=== PATIENT | female | born 1980 | race Two or more races ===

== ENCOUNTER 2022-02-03 09:27 | Inpatient (IN) | payer SELFPAY ==
[~2022-02-03] VITALS: Ht 160 cm; Wt 70.6 kg
[2022-02-03] VITALS (10 sets, daily range): BP systolic 116–168; BP diastolic 60–91
--- NOTE | 2022-02-03 09:50 | PHYS DOC ---
Adult General Chief Complaint Chief Complaint: HYPERTENSION HPI HPI Patient is a 42 year old female who presents with chest pain. Patient is a Faroese-speaking 42-year-old female who moved to the [facility] from [place] 3 years ago. She comes to the ER today with a 1.5-day history of chest pain and chest heaviness. She reports the pain to be sternal in nature. Pain is sometimes worse with exertion but does occur while she is at rest. No shortness of breath. No fever, cough, chills. She does have prior history of similar symptoms but has not had chest pain during the 3 years time that she has been in [facility]. On arrival to ER, is noted to have severely elevated blood pressure with systolic readings over 220. She reports she has never been diagnosed with high blood pressure in the past and does not take any medications for this diagnosis. Also takes no medications daily for other reasons. She does complain of headache and occipital area as well. Complains of some pain in the left arm but no complaints of weakness. Review of Systems Review of Systems Constitutional: Denies fever or chills Eyes: Denies change in visual acuity HENT: Denies nasal congestion Respiratory: Denies cough or shortness of breath Cardiovascular: As documented in HPI GI: Denies abdominal pain, nausea : Denies dysuria or hematuria Musculoskeletal: Denies back pain Integument: Denies rash or skin lesions Neurologic: Occipital headache Endocrine: Denies polyuria or polydipsia All other systems were reviewed and found to be within normal limits, except as documented in this note. Current Medications Current Medications Current Medications Medications (Trade) Dose Ordered Sig/Mathew Start Time Stop Time Status Last Admin Dose Admin Acetaminophen (Tylenol) 650 mg PRN Q4HRS PRN 02/03/22 15:15 Aspirin (Aspirin Chewable) 324 mg 1X ONCE 02/03/22 13:30 02/03/22 13:31 DC 02/03/22 13:37 324 MG Clonidine HCl (Catapres) 0.1 mg 1X ONCE 02/03/22 13:15 02/03/22 13:20 DC Dextrose (Dextrose 50%-Water Syringe) 12.5 gm PRN Q15MIN PRN 02/03/22 15:15 Diphenhydramine HCl (Benadryl) 25 mg PRN QHS PRN 02/03/22 15:15 Docusate Sodium (Colace) 100 mg PRN DAILY PRN 02/03/22 15:15 Labetalol HCl (Normodyne Iv Push) 10 mg 1X ONCE 02/03/22 11:30 02/03/22 11:31 DC 02/03/22 11:40 10 MG Lorazepam (Ativan Inj) 0.25 mg PRN Q4HRS PRN 02/03/22 15:15 Lorazepam (Ativan) 0.5 mg PRN Q6HRS PRN 02/03/22 15:15 Nicardipine HCl 50 mg/Sodium Chloride 250 ml @ 25 mls/hr CONT PRN 02/03/22 14:00 02/03/22 14:11 25 MLS/HR Nitroglycerin (Nitrostat) 0.4 mg PRN Q5MIN PRN 02/03/22 13:30 02/03/22 13:43 0.4 MG Ondansetron HCl (Zofran) 4 mg PRN Q8HRS PRN 02/03/22 15:30 02/04/22 15:29 Potassium Chloride (Klor-Con) 40 meq 1X ONCE 02/03/22 15:15 02/03/22 15:26 DC Prochlorperazine Edisylate (Compazine) 10 mg PRN Q6HRS PRN 02/03/22 15:15 Sennosides (Senna) 17.2 mg PRN BID PRN 02/03/22 15:15 Zolpidem Tartrate (Ambien) 2.5 mg PRN QHS PRN 02/03/22 15:15 Allergies Allergies Allergies Coded Allergies Type Severity Reaction Last Updated Verified No Known Drug Allergies 02/03/22 No Physical Exam Physical Exam Constitutional: Well developed, well nourished, no acute distress, non-toxic appearance. HENT: Normocephalic, atraumatic, bilateral external ears normal, oropharynx moist, no oral exudates, nose normal Eyes: PERRLA, EOMI, conjunctiva normal, no discharge Neck: Normal range of motion Cardiovascular:Heart rate regular rhythm, no murmur Lungs & Thorax: Bilateral breath sounds clear to auscultation Abdomen: Bowel sounds normal, soft, no tenderness Skin: Warm, dry, no erythema Back: No tenderness Extremities: No tenderness, no edema Neurologic: Alert and oriented X 3, normal motor function Psychologic: Affect normal Current Patient Data Vital Signs Vital Signs Date Time Temp Pulse Resp B/P (MAP) Pulse Ox O2 Delivery O2 Flow Rate FiO2 02/03/22 14:35 89 14 173/96 (121) 98 02/03/22 09:38 98.2 Room Air 98.2 Lab Values Laboratory Tests Test 02/03/22 10:11 02/03/22 10:20 02/03/22 10:31 Urine Collection Type Unknown Urine Color (Auto) Colorless Urine Turbidity Clear Urine pH (Auto) 6.5 (<5.0-8.0) Urine Specific [place] 1.006 (1.000-1.030) Urine Protein (Auto) Negative mg/dL (Negative) Urine Glucose (Auto)(UA) Negative mg/dL (Negative) Urine Ketones (Auto) Negative mg/dL (Negative) Urine Blood (Auto) Negative (Negative) Urine Nitrite (Auto) Negative (Negative) Urine Bilirubin (Auto) Negative (Negative) Urine Urobilinogen (Auto) Normal mg/dL (Normal) Urine Leukocyte Esterase (Auto) Negative (Negative) Urine RBC 0 /HPF (0-2) Urine WBC 1-4 /HPF (0-4) Urine Squamous Epithelial Cells Mod /LPF Urine Bacteria Few /HPF (0-FEW) POC Urine HCG, Qualitative Hcg negative (Negative) White Blood Count 7.0 x10^3/uL (4.0-11.0) Red Blood Count 5.06 x10^6/uL (3.50-5.40) Hemoglobin 13.3 g/dL (12.0-15.5) Hematocrit 39.3 % (36.0-47.0) Mean Corpuscular Volume 78 fL (79-100) L Mean Corpuscular Hemoglobin 26 pg (25-35) Mean Corpuscular Hemoglobin Concent 34 g/dL (31-37) Red Cell Distribution Width 15.2 % (11.5-14.5) H Platelet Count 241 x10^3/uL (140-400) Neutrophils (%) (Auto) 61 % (31-73) Lymphocytes (%) (Auto) 31 % (24-48) Monocytes (%) (Auto) 7 % (0-9) Eosinophils (%) (Auto) 1 % (0-3) Basophils (%) (Auto) 1 % (0-3) Neutrophils # (Auto) 4.2 x10^3/uL (1.8-7.7) Lymphocytes # (Auto) 2.1 x10^3/uL (1.0-4.8) Monocytes # (Auto) 0.5 x10^3/uL (0.0-1.1) Eosinophils # (Auto) 0.1 x10^3/uL (0.0-0.7) Basophils # (Auto) 0.0 x10^3/uL (0.0-0.2) Sodium Level 138 mmol/L (136-145) Potassium Level 3.3 mmol/L (3.5-5.1) L Chloride Level 103 mmol/L (98-107) Carbon Dioxide Level 27 mmol/L (21-32) Anion Gap 8 (6-14) Blood Urea Nitrogen 7 mg/dL (7-20) Creatinine 0.7 mg/dL (0.6-1.0) Estimated GFR (Cockcroft-Gault) 92.7 Glucose Level 92 mg/dL (70-99) Calcium Level 8.8 mg/dL (8.5-10.1) Troponin I High Sensitivity 6 ng/L (4-50) Laboratory Tests 02/03/22 10:31 Laboratory Tests 02/03/22 10:31 EKG EKG 11:00; EKG is normal sinus rhythm. Possibly LVH. No STEMI. Radiology/Procedures Radiology/Procedures [] Course & Med Decision Making Course & Med Decision Making Pertinent Labs and Imaging studies reviewed. (See chart for details) Patient is evaluated on arrival to her room. She is complaining of some chest heaviness and discomfort. Blood pressure is noted to be elevated and she does not have a history of this. Standard work-up is ordered. 14:00: Patient is reevaluated. Continues to have some chest heaviness. She has received 2 doses of labetalol. She continues to have blood pressure of 225 systolic. Aspirin was ordered and nitroglycerin and will reevaluate blood pressure but patient will require admission for accelerated hypertension. Her labs are reviewed. Her EKG is nonacute and her troponin is not elevated. CT scan was completed given her complaint of headache and no acute findings. 15:00: All results are reviewed and discussed with the patient. No elevation of troponin. EKG nonacute. During the ER course, she was given labetalol which w as not effective. She was placed on nicardipine drip which she responded to very quickly. Blood pressure came down to 170 and the drip was placed on lowest setting at that point. I did discuss this patient with Dr. Cook who will primarily admit for control blood pressure and hypertensive urgency. Patient is agreeable to the plan of care. During the ER course, Faroese interpretive services were used to answer all of her questions. Dragon Disclaimer Dragon Disclaimer This electronic medical record was generated, in whole or in part, using a voice recognition dictation system. Departure Departure Impression: Primary Impression: Hypertensive urgency Disposition: ADMITTED INPATIENT Condition: IMPROVED RAFAEL MITCHELL DO Feb 03, 2022 09:50
[2022-02-03] MEDS ORDERED: LABETALOL 20 MG/4 ML DISP.SYRIN. IVP ONE ×2 (10:00→11:30)
[2022-02-03 10:45] LABS: BASO % 1 % (0-3); EOS # 0.1 x10^3/uL (0.0-0.7); EOS % 1 % (0-3); HEMATOCRIT 39.3 % (36.0-47.0); HEMOGLOBIN 13.3 g/dL (12.0-15.5); LYMPH # 2.1 x10^3/uL (1.0-4.8); LYMPH % 31 % (24-48); MEAN CORPUSCULAR HEMOGLOBIN 26 pg (25-35); MEAN CORPUSCULAR HGB CONC 34 g/dL (31-37); MEAN CORPUSCULAR VOLUME 78 fL (79-100); MONO # 0.5 x10^3/uL (0.0-1.1); MONO % 7 % (0-9); NEUT # 4.2 x10^3/uL (1.8-7.7); NEUT % 61 % (31-73); PLATELET COUNT 241 x10^3/uL (140-400); RED BLOOD COUNT 5.06 x10^6/uL (3.50-5.40); RED CELL DISTRIBUTION WIDTH 15.2 % (11.5-14.5)
[2022-02-03 10:47] LABS: BACTERIA,URINE FEW /HPF (0-FEW)
[2022-02-03 10:48] LABS: RBC,URINE 0 /HPF (0-2)
[2022-02-03 10:52] LABS: CALCIUM 8.8 mg/dL (8.5-10.1); CREATININE 0.7 mg/dL (0.6-1.0); GFR 92.7; POTASSIUM 3.3 mmol/L (3.5-5.1)
--- NOTE | 2022-02-03 11:36 | RAD ---
CT HEAD/BRAIN WO Date: 02/03/2022 11:18 AM Clinical Indication: severe headache, severe hypertension / Spl. Instructions: / History: Comparison: None. Technique: 5 mm axial tomographic images were obtained of the head without contrast. These were view ed on brain and bone windows. One or more of the following dose reduction techniques were utilized: A utomated exposure control (AEC), Adjustment of mA and/or kV according to patient size, Use of iterati ve reconstruction technique such as ASiR, CT scan done according to ALARA and image gently/image burdick ly Findings: The brain parenchyma is normal in attenuation. No intra- or extra-axial mass or fluid collection. No acute hemorrhage. The ventricles are normal in size, shape, and morphology. The martinez-white matter meghan ction is normal. The subarachnoid cisterns are patent. The visualized paranasal sinuses are normal. The visualized portions of the orbits and globes are no rmal. The mastoid air cells are clear. The metal trim erector topogram shows no lytic lesion or fracture. Impression: No acute intracranial process. Electronically signed by: Den Renteria MD (02/03/2022 11:33 AM) [id number]
--- NOTE | 2022-02-03 11:58 | EKG ---
[facility] [address] [place] [address] Test Date: 2022-02-03 Test Time: 10:06:11 Pat Name: TOIM MEEKS Department: Room: Gender: F Emergency Medical Dispatcher: : 1980 Requested By: RAFAEL MITCHELL Order Number: [id number] Reading MD: Yash Smith Measurements Intervals [place] Rate: 71 P: 34 FL: 162 QRS: -32 QRSD: 96 T: 61 QT: 406 QTc: 446 Interpretive Statements SINUS RHYTHM ABNORMAL LEFT AXIS DEVIATION LEFT ANTERIOR FASCICULAR BLOCK NON SPECIFIC ST-T WAVE CHANGES Electronically Signed On 02-03-2022 16:15:05 CDT by Yash Smith
[2022-02-03] MEDS ORDERED: cloNIDine HCL 0.1 MG TABLET PO ONE (13:15)
[2022-02-03] MEDS ORDERED: ASPIRIN CHEWABLE 81 MG TABLET. PO ONE (13:30)
[2022-02-03] MEDS: NITROGLYCERIN SUBLINGUAL 0.4 MG BOTTLE OF 25. SL PRN ×2 (13:38→13:43)
--- NOTE | 2022-02-03 14:33 | RAD ---
Single view of the chest. 02/03/2022 2:21 PM Indication: Chest pain Findings: There is no focal consolidation. There is no pleural effusion or pneumothorax. The cardiome diastinal silhouette and pulmonary vasculature are within normal limits. No acute osseous abnormaliti es are seen. Impression: No evidence of acute cardiopulmonary process. Electronically signed by: Jose Cummins MD (02/03/2022 2:30 PM) [id number]
[2022-02-03] MEDS ORDERED: diphenhydrAMINE 50 MG/ML VIAL IVP PRN (15:15)
[2022-02-03] MEDS ORDERED: POTASSIUM CHLORIDE 20 MEQ TABLET.ER. PO ONE (15:15)
[2022-02-03] MEDS ORDERED: LORazepam 0.5 MG TABLET PO PRN (15:15)
[2022-02-03] MEDS ORDERED: ZOLPIDEM 5 MG TABLET. PO PRN (15:15)
[2022-02-03] MEDS ORDERED: diphenhydrAMINE HCL 25 MG CAPSULE PO PRN ×2 (15:15)
[2022-02-03] MEDS ORDERED: DOCUSATE SODIUM 100 MG CAPSULE. PO PRN (15:15)
[2022-02-03] MEDS ORDERED: SENNOSIDES 8.6 MG TABLET PO PRN (15:15)
[2022-02-03] MEDS ORDERED: PROCHLORPERAZINE 10 MG/2 ML VIAL. IV PRN (15:15)
[2022-02-03] MEDS ORDERED: DEXTROSE 50% 25 GM / 50ML DISP.SYRIN. IV PRN (15:15)
[2022-02-03] MEDS ORDERED: ONDANSETRON PF 4 MG/2 ML VIAL. IVP PRN ×2 (15:15→15:30)
[2022-02-03] MEDS: ACETAMINOPHEN 325 MG TABLET. PO PRN (18:18)
--- NOTE | 2022-02-03 18:39 | PDOC1 ---
History and Physical Date of Service: DOS: DATE: 02/03/22 TIME: 18:27 Chief Complaint: Chief Complain: High blood pressure History of Present Illness: HPI: 42 yo F with no significant PMHx who comes in with chest discomfort and high BP. She moved from [place] 3 years ago and has not seen a doctor for 3 years. She does not take any medications. She started having chest heaviness about 2 days ago in the sternal region that occurs with exertion and also at rest. Denies SOB, fevers, N/V, ABD pain, diarrhea or dysuria. No family hx of AR or DM, but there is HTN in the family. In the ED, patient had labetalol x 2 and clonidine for BP systolics > 220, but pressures still elevated. She was started on a cardene drip and here pressures improved to 170/99. Denies any drug abuse or hx of high BP in the past. Past Medical/Surgical History: PMH/PSH: No PMHX of SurgHx Allergies: Allergies: Coded Allergies: No Known Drug Allergies (Unverified , 02/03/22) Family History: Family History: HTN Social History: Social History: Denies EtOH, drug or tobacco abuse. Current Medications: Current Medications Current Medications Labetalol HCl (Normodyne Iv Push) 10 mg 1X ONCE IVP Last administered on 02/03/22at 10:39; Start 02/03/22 at 10:00; Stop 02/03/22 at 10:01; Status DC Labetalol HCl (Normodyne Iv Push) 10 mg 1X ONCE IVP Last administered on at 11:40; Start 02/03/22 at 11:30; Stop 02/03/22 at 11:31; Status DC Clonidine HCl (Catapres) 0.1 mg 1X ONCE PO ; Start 02/03/22 at 13:15; Stop 02/03/22 at 13:20; Status DC Nitroglycerin (Nitrostat) 0.4 mg PRN Q5MIN PRN SL CHEST PAIN Last administered on 02/03/22at 13:43; Start 02/03/22 at 13:30 Aspirin (Aspirin Chewable) 324 mg 1X ONCE PO Last administered on 02/03/22at 1 3:37; Start 02/03/22 at 13:30; Stop 02/03/22 at 13:31; Status DC Nicardipine HCl 50 mg/Sodium Chloride 250 ml @ 25 mls/hr CONT PRN IV PER PROTOCOL Last administered on 02/03/22at 14:11; Start 02/03/22 at 14:00 Potassium Chloride (Klor-Con) 40 meq 1X ONCE PO Last administered on 02/03/22at 16:26; Start 02/03/22 at 15:15; Stop 02/03/22 at 15:26; Status DC Sennosides (Senna) 17.2 mg PRN BID PRN PO CONSTIPATION; Start 02/03/22 at 15:15 Docusate Sodium (Colace) 100 mg PRN DAILY PRN PO HARD STOOLS; Start 02/03/22 at 15:15 Ondansetron HCl (Zofran) 4 mg PRN Q6HRS PRN IVP NAUSEA/VOMITING, 1st CHOICE Last administered on 02/03/22at 18:25; Start 02/03/22 at 15:15 Dextrose (Dextrose 50%-Water Syringe) 12.5 gm PRN Q15MIN PRN IV SEE COMMENTS; Start 02/03/22 at 15:15 Acetaminophen (Tylenol) 650 mg PRN Q4HRS PRN PO TEMP OVER 100.4F OR MILD PAIN Last administered on 02/03/22at 18:18; Start 02/03/22 at 15:15 Lorazepam (Ativan) 0.5 mg PRN Q6HRS PRN PO ANXIETY / AGITATION; Start 02/03/22 at 15:15 Lorazepam (Ativan Inj) 0.25 mg PRN Q4HRS PRN IV ANXIETY / AGITATION; Start 02/03/22 at 15:15 Prochlorperazine Edisylate (Compazine) 10 mg PRN Q6HRS PRN IV NAUSEA/VOMITING, 2nd CHOICE; Start 02/03/22 at 15:15 Diphenhydramine HCl (Benadryl) 25 mg PRN Q6HRS PRN IVP ITCHING; Start 02/03/22 at 15:15 Diphenhydramine HCl (Benadryl) 25 mg PRN Q6HRS PRN PO ITCHING; Start 02/03/22 at 15:15 Diphenhydramine HCl (Benadryl) 25 mg PRN QHS PRN PO INSOMNIA, 1st CHOICE; Start 02/03/22 at 15:15 Zolpidem Tartrate (Ambien) 2.5 mg PRN QHS PRN PO INSOMNIA, 2nd CHOICE; Start 02/03/22 at 15:15 Ondansetron HCl (Zofran) 4 mg PRN Q8HRS PRN IVP NAUSEA/VOMITING; Start 02/03/22 at 15:30; Stop 02/04/22 at 15:29 ROS: Review of Systems Review of System REVIEW OF SYSTEMS: GENERAL: Denies weakness SKIN: No bruising, hair changes or rashes. EYES: No blurred, double or loss of vision. NOSE AND THROAT: No history of nosebleeds, hoarseness or sore throat. HEART: No history of palpitations, chest pain or shortness of breath on exertion. LUNGS: Denies cough, hemoptysis, wheezing or shortness of breath. GASTROINTESTINAL: Denies changes in appetite, nausea, vomiting, diarrhea or constipation. GENITOURINARY: No history of frequency, urgency, hesitancy or nocturia. NEUROLOGIC: Denies history of numbness, tingling, or tremor. PSYCHIATRIC: No history of panic, anxiety or depression. ENDOCRINE: No history of heat or cold intolerance, polyuria or polydipsia. EXTREMITIES: Denies joint pain, pain on walking or stiffness. Physical Exam: Vital Signs: Vital Signs Date Time Temp Pulse Resp B/P (MAP) Pulse Ox O2 Delivery O2 Flow Rate FiO2 02/03/22 17:40 83 16 157/90 (112) 100 02/03/22 09:38 98.2 Room Air 98.2 Physcial Exam: GEN: No apparent distress. Alert and oriented HEENT: Normal cephalic, atraumatic, external auditory canals are patent EYES: Extraocular muscles are intact, pupil are equally round and reactive to light and accommodation MUSCULOSKELETAL: Well developed , well nourished, good range of motion ENDOCRINE: No thyromegaly was palpated LYMPHATICS: No cervical chain or axillary nodes were noted HEMATOPOIETIC: No bruising NECK: Supple, no JVD, no thyromegaly was noted LUNGS: Clear to auscultation in all lung bynum without rhonchi or wheezing HEART: RRR, S!, S2 present. Peripheral pulses intact, no obvious murmurs noted ABDOMEN: Soft, nontender. Positive bowel sounds, no organomegaly, normal bowel sounds EXTREMITIES: Without clubbing, cyanosis, or edema. Pedal pulses intact. Negative Homans sign NEUROLOGIC: Normal speech and tone. A&O x 3, moves all extremities, no obvious focal deficits PSYCHIATRIC: Normal affect, normal mood. Stable SKIN: No ulcerations or rashes, good skin turgor, no jaundice VASCULAR: Good capillary refill, neurovascular bundle appears to be intact Labs: Labs: Laboratory Tests Test 02/03/22 10:11 02/03/22 10:20 02/03/22 10:31 Urine Collection Type Unknown Urine Color (Auto) Colorless Urine Turbidity Clear Urine pH (Auto) 6.5 (<5.0-8.0) Urine Specific [place] 1.006 (1.000-1.030) Urine Protein (Auto) Negative mg/dL (Negative) Urine Glucose (Auto)(UA) Negative mg/dL (Negative) Urine Ketones (Auto) Negative mg/dL (Negative) Urine Blood (Auto) Negative (Negative) Urine Nitrite (Auto) Negative (Negative) Urine Bilirubin (Auto) Negative (Negative) Urine Urobilinogen (Auto) Normal mg/dL (Normal) Urine Leukocyte Esterase (Auto) Negative (Negative) Urine RBC 0 /HPF (0-2) Urine WBC 1-4 /HPF (0-4) Urine Squamous Epithelial Cells Mod /LPF Urine Bacteria Few /HPF (0-FEW) Bedside Urine HCG, Qualitative Hcg negative (Negative) White Blood Count 7.0 x10^3/uL (4.0-11.0) Red Blood Count 5.06 x10^6/uL (3.50-5.40) Hemoglobin 13.3 g/dL (12.0-15.5) Hematocrit 39.3 % (36.0-47.0) Mean Corpuscular Volume 78 fL (79-100) Mean Corpuscular Hemoglobin 26 pg (25-35) Mean Corpuscular Hemoglobin Concent 34 g/dL (31-37) Red Cell Distribution Width 15.2 % (11.5-14.5) Platelet Count 241 x10^3/uL (140-400) Neutrophils (%) (Auto) 61 % (31-73) Lymphocytes (%) (Auto) 31 % (24-48) Monocytes (%) (Auto) 7 % (0-9) Eosinophils (%) (Auto) 1 % (0-3) Basophils (%) (Auto) 1 % (0-3) Neutrophils # (Auto) 4.2 x10^3/uL (1.8-7.7) Lymphocytes # (Auto) 2.1 x10^3/uL (1.0-4.8) Monocytes # (Auto) 0.5 x10^3/uL (0.0-1.1) Eosinophils # (Auto) 0.1 x10^3/uL (0.0-0.7) Basophils # (Auto) 0.0 x10^3/uL (0.0-0.2) Sodium Level 138 mmol/L (136-145) Potassium Level 3.3 mmol/L (3.5-5.1) Chloride Level 103 mmol/L (98-107) Carbon Dioxide Level 27 mmol/L (21-32) Anion Gap 8 (6-14) Blood Urea Nitrogen 7 mg/dL (7-20) Creatinine 0.7 mg/dL (0.6-1.0) Estimated GFR (Cockcroft-Gault) 92.7 Glucose Level 92 mg/dL (70-99) Calcium Level 8.8 mg/dL (8.5-10.1) Ferritin 20 ng/mL (8-252) Troponin I High Sensitivity 6 ng/L (4-50) Thyroid Stimulating Hormone (TSH) 0.989 uIU/mL (0.358-3.74) Laboratory Tests Test 02/03/22 10:11 02/03/22 10:20 02/03/22 10:31 Urine Collection Type Unknown Urine Color (Auto) Colorless Urine Turbidity Clear Urine pH (Auto) 6.5 (<5.0-8.0) Urine Specific [place] 1.006 (1.000-1.030) Urine Protein (Auto) Negative mg/dL (Negative) Urine Glucose (Auto)(UA) Negative mg/dL (Negative) Urine Ketones (Auto) Negative mg/dL (Negative) Urine Blood (Auto) Negative (Negative) Urine Nitrite (Auto) Negative (Negative) Urine Bilirubin (Auto) Negative (Negative) Urine Urobilinogen (Auto) Normal mg/dL (Normal) Urine Leukocyte Esterase (Auto) Negative (Negative) Urine RBC 0 /HPF (0-2) Urine WBC 1-4 /HPF (0-4) Urine Squamous Epithelial Cells Mod /LPF Urine Bacteria Few /HPF (0-FEW) Bedside Urine HCG, Qualitative Hcg negative (Negative) White Blood Count 7.0 x10^3/uL (4.0-11.0) Red Blood Count 5.06 x10^6/uL (3.50-5.40) Hemoglobin 13.3 g/dL (12.0-15.5) Hematocrit 39.3 % (36.0-47.0) Mean Corpuscular Volume 78 fL (79-100) Mean Corpuscular Hemoglobin 26 pg (25-35) Mean Corpuscular Hemoglobin Concent 34 g/dL (31-37) Red Cell Distribution Width 15.2 % (11.5-14.5) Platelet Count 241 x10^3/uL (140-400) Neutrophils (%) (Auto) 61 % (31-73) Lymphocytes (%) (Auto) 31 % (24-48) Monocytes (%) (Auto) 7 % (0-9) Eosinophils (%) (Auto) 1 % (0-3) Basophils (%) (Auto) 1 % (0-3) Neutrophils # (Auto) 4.2 x10^3/uL (1.8-7.7) Lymphocytes # (Auto) 2.1 x10^3/uL (1.0-4.8) Monocytes # (Auto) 0.5 x10^3/uL (0.0-1.1) Eosinophils # (Auto) 0.1 x10^3/uL (0.0-0.7) Basophils # (Auto) 0.0 x10^3/uL (0.0-0.2) Sodium Level 138 mmol/L (136-145) Potassium Level 3.3 mmol/L (3.5-5.1) Chloride Level 103 mmol/L (98-107) Carbon Dioxide Level 27 mmol/L (21-32) Anion Gap 8 (6-14) Blood Urea Nitrogen 7 mg/dL (7-20) Creatinine 0.7 mg/dL (0.6-1.0) Estimated GFR (Cockcroft-Gault) 92.7 Glucose Level 92 mg/dL (70-99) Calcium Level 8.8 mg/dL (8.5-10.1) Ferritin 20 ng/mL (8-252) Troponin I High Sensitivity 6 ng/L (4-50) Thyroid Stimulating Hormone (TSH) 0.989 uIU/mL (0.358-3.74) Images: Images PROCEDURE: CT HEAD WO CONTRAST CT HEAD/BRAIN WO Date: 02/03/2022 11:18 AM Clinical Indication: severe headache, severe hypertension / Spl. Instructions: / History: Comparison: None. Technique: 5 mm axial tomographic images were obtained of the head without contrast. These were viewed on brain and bone windows. One or more of the following dose reduction techniques were utilized: Automated exposure control (AEC), Adjustment of mA and/or kV according to patient size, Use of iterative reconstruction technique such as ASiR, CT scan done according to ALARA and image gently/image wisely Findings: The brain parenchyma is normal in attenuation. No intra- or extra-axial mass or fluid collection. No acute hemorrhage. The ventricles are normal in size, shape, and morphology. The martinez-white matter junction is normal. The subarachnoid cisterns are patent. The visualized paranasal sinuses are normal. The visualized portions of the orbits and globes are normal. The mastoid air cells are clear. The scientist engineer topogram shows no lytic lesion or fracture. Impression: No acute intracranial process. PROCEDURE: PORTABLE CHEST 1V Single view of the chest. 02/03/2022 2:21 PM Indication: Chest pain Findings: There is no focal consolidation. There is no pleural effusion or pneumothorax. The cardiomediastinal silhouette and pulmonary vasculature are within normal limits. No acute osseous abnormalities are seen. Impression: No evidence of acute cardiopulmonary process. Assessment/Plan Assessment/Plan Hypertensive urgency Mild Hypokalemia Admit to hospitalist for further management Continue telemonitoring Continue cardene drip Will start on amlodipine and losartan tonight. DVT prophy: SCD CODE: FULL DPOA: Sister Disposition: inpt management above Justifications for Admission Other Justification Hypertensive urgency GERARD BROWN MD Feb 03, 2022 18:39
[2022-02-03] MEDS ORDERED: KETOROLAC 15 MG/ML VIAL. IVP PRN (19:00)
[2022-02-03] MEDS: hydroCHLOROthiazide 12.5 MG TABLET PO SCH (21:18)
[2022-02-04] VITALS (24 sets, daily range): BP systolic 117–165; BP diastolic 64–93
[2022-02-04 04:58] LABS: BASO % 0 % (0-3); EOS % 1 % (0-3); HEMATOCRIT 39.6 % (36.0-47.0); HEMOGLOBIN 13.3 g/dL (12.0-15.5); LYMPH # 2.3 x10^3/uL (1.0-4.8); LYMPH % 30 % (24-48); MEAN CORPUSCULAR HEMOGLOBIN 26 pg (25-35); MEAN CORPUSCULAR HGB CONC 34 g/dL (31-37); MEAN CORPUSCULAR VOLUME 78 fL (79-100); MONO # 0.7 x10^3/uL (0.0-1.1); MONO % 9 % (0-9); NEUT # 4.6 x10^3/uL (1.8-7.7); NEUT % 60 % (31-73); PLATELET COUNT 232 x10^3/uL (140-400); RED BLOOD COUNT 5.06 x10^6/uL (3.50-5.40); WHITE BLOOD COUNT 7.6 x10^3/uL (4.0-11.0)
[2022-02-04 05:20] LABS: CALCIUM 8.7 mg/dL (8.5-10.1); CREATININE 0.7 mg/dL (0.6-1.0); GFR 92.7; MAGNESIUM 2.1 mg/dL (1.8-2.4); PHOSPHORUS 3.8 mg/dL (2.6-4.7); POTASSIUM 3.2 mmol/L (3.5-5.1)
[2022-02-04] MEDS: hydroCHLOROthiazide 12.5 MG TABLET PO SCH (08:45)
[2022-02-04] MEDS: ACETAMINOPHEN 325 MG TABLET. PO PRN (08:47)
[2022-02-04] MEDS ORDERED: hydrALAZINE 20 MG/ML VIAL. IVP PRN (13:00)
[2022-02-04] MEDS ORDERED: POTASSIUM CHLORIDE 20 MEQ TABLET.ER. PO ONE (13:00)
[2022-02-04] MEDS ORDERED: LABETALOL 20 MG/4 ML DISP.SYRIN. IVP PRN (13:00)
--- NOTE | 2022-02-04 13:29 | PDOC ---
[employer] PROGRESS NOTE Date of Service DOS: DATE: 02/04/22 TIME: 13:26 Chief Complaint Chief Complaint Hypertensive urgency Mild Hypokalemia History of Present Illness History of Present Illness 02/04: Patient seen and evaluated. She denies any chest pain or headache. Will increase amlodipine to 10 mg, and discharged on HCTZ and amlodipine. Recommended to patient that she establish a primary care provider for continued management of her high blood pressure, and she conveyed understanding. Greater than 30 minutes spent managing discharge of this patient. Vitals/I&O Vitals/I&O: Vital Signs Date Time Temp Pulse Resp B/P (MAP) Pulse Ox O2 Delivery O2 Flow Rate FiO2 02/04/22 13:09 74 144/78 02/04/22 11:00 98.0 16 99 Room Air 98.0 I & O 02/03/22 02/03/22 02/04/22 15:00 23:00 07:00 Intake Total 0 ml 200 ml Balance 0 ml 200 ml Physical Exam General: Alert, Oriented X3, Cooperative, No acute distress Heart: Regular rate Lungs: Clear Abdomen: Soft, No tenderness Extremities: No clubbing, No cyanosis Skin: No rashes, No breakdown Labs Labs: Laboratory Tests Test 02/04/22 03:50 White Blood Count 7.6 x10^3/uL (4.0-11.0) Red Blood Count 5.06 x10^6/uL (3.50-5.40) Hemoglobin 13.3 g/dL (12.0-15.5) Hematocrit 39.6 % (36.0-47.0) Mean Corpuscular Volume 78 fL (79-100) Mean Corpuscular Hemoglobin 26 pg (25-35) Mean Corpuscular Hemoglobin Concent 34 g/dL (31-37) Red Cell Distribution Width 15.0 % (11.5-14.5) Platelet Count 232 x10^3/uL (140-400) Neutrophils (%) (Auto) 60 % (31-73) Lymphocytes (%) (Auto) 30 % (24-48) Monocytes (%) (Auto) 9 % (0-9) Eosinophils (%) (Auto) 1 % (0-3) Basophils (%) (Auto) 0 % (0-3) Neutrophils # (Auto) 4.6 x10^3/uL (1.8-7.7) Lymphocytes # (Auto) 2.3 x10^3/uL (1.0-4.8) Monocytes # (Auto) 0.7 x10^3/uL (0.0-1.1) Eosinophils # (Auto) 0.0 x10^3/uL (0.0-0.7) Basophils # (Auto) 0.0 x10^3/uL (0.0-0.2) Sodium Level 138 mmol/L (136-145) Potassium Level 3.2 mmol/L (3.5-5.1) Chloride Level 104 mmol/L (98-107) Carbon Dioxide Level 26 mmol/L (21-32) Anion Gap 8 (6-14) Blood Urea Nitrogen 10 mg/dL (7-20) Creatinine 0.7 mg/dL (0.6-1.0) Estimated GFR (Cockcroft-Gault) 92.7 Glucose Level 89 mg/dL (70-99) Calcium Level 8.7 mg/dL (8.5-10.1) Phosphorus Level 3.8 mg/dL (2.6-4.7) Magnesium Level 2.1 mg/dL (1.8-2.4) Assessment and Plan Assessmemt and Plan Problems Medical Problems: (1) Hypertensive urgency Status: Acute Comment Review of Relevant I have reviewed the following items venancio (where applicable) has been applied. Medications: Current Medications Medications (Trade) Dose Ordered Sig/Mathew Route PRN Reason Start Time Stop Time Status Last Admin Dose Admin Nitroglycerin (Nitrostat) 0.4 mg PRN Q5MIN PRN SL CHEST PAIN 02/03/22 13:30 02/03/22 13:43 Aspirin (Aspirin Chewable) 324 mg 1X ONCE PO 02/03/22 13:30 02/03/22 13:31 DC 02/03/22 13:37 Nicardipine HCl 50 mg/Sodium Chloride 250 ml @ 25 mls/hr CONT PRN IV PER PROTOCOL 02/03/22 14:00 02/04/22 12:52 DC 02/03/22 14:11 Potassium Chloride (Klor-Con) 40 meq 1X ONCE PO 02/03/22 15:15 02/03/22 15:26 DC 02/03/22 16:26 Ondansetron HCl (Zofran) 4 mg PRN Q6HRS PRN IVP NAUSEA/VOMITING, 1st CHOICE 02/03/22 15:15 02/03/22 18:25 Acetaminophen (Tylenol) 650 mg PRN Q4HRS PRN PO TEMP OVER 100.4F OR MILD PAIN 02/03/22 15:15 02/04/22 08:47 Prochlorperazine Edisylate (Compazine) 10 mg PRN Q6HRS PRN IV NAUSEA/VOMITING, 2nd CHOICE 02/03/22 15:15 02/03/22 20:05 Ketorolac Tromethamine (Toradol 15mg Vial) 15 mg PRN Q6HRS PRN IVP PAIN 02/03/22 19:00 02/08/22 18:59 02/03/22 20:05 Amlodipine Besylate (Norvasc) 5 mg DAILY PO 02/03/22 21:00 02/04/22 12:57 DC 02/04/22 08:45 Hydrochlorothiazide (Microzide) 12.5 mg DAILY PO 02/03/22 21:00 02/04/22 08:45 Potassium Chloride (Klor-Con) 40 meq 1X ONCE PO 02/04/22 13:00 02/04/22 13:01 DC 02/04/22 13:09 Amlodipine Besylate (Norvasc) 5 mg 1X ONCE PO 02/04/22 13:00 02/04/22 13:02 DC 02/04/22 13:09 Justifications for Admission Other Justification Hypertensive urgency KASI BARLOW MD Feb 04, 2022 13:29
--- NOTE | 2022-02-04 13:31 | PDOC3 ---
Discharge Summary Visit Information Date of Admission: Feb 03, 2022 Date of Discharge: Feb 04, 2022 Final Diagnosis Problems Medical Problems: (1) Hypertensive urgency Status: Acute Brief Hospital Course Allergies Allergies Coded Allergies Type Severity Reaction Last Updated Verified No Known Drug Allergies 02/03/22 No Vital Signs Vital Signs Date Time Temp Pulse Resp B/P (MAP) Pulse Ox O2 Delivery O2 Flow Rate FiO2 02/04/22 13:09 74 144/78 02/04/22 11:00 98.0 16 99 Room Air 98.0 Lab Results Laboratory Tests Test 02/03/22 10:11 02/03/22 10:20 02/03/22 10:31 02/04/22 03:50 Urine Collection Type Unknown Urine Color (Auto) Colorless Urine Turbidity Clear Urine pH (Auto) 6.5 (<5.0-8.0) Urine Specific [place] 1.006 (1.000-1.030) Urine Protein (Auto) Negative mg/dL (Negative) Urine Glucose (Auto)(UA) Negative mg/dL (Negative) Urine Ketones (Auto) Negative mg/dL (Negative) Urine Blood (Auto) Negative (Negative) Urine Nitrite (Auto) Negative (Negative) Urine Bilirubin (Auto) Negative (Negative) Urine Urobilinogen (Auto) Normal mg/dL (Normal) Urine Leukocyte Esterase (Auto) Negative (Negative) Urine RBC 0 /HPF (0-2) Urine WBC 1-4 /HPF (0-4) Urine Squamous Epithelial Cells Mod /LPF Urine Bacteria Few /HPF (0-FEW) Bedside Urine HCG, Qualitative Hcg negative (Negative) White Blood Count 7.0 x10^3/uL (4.0-11.0) 7.6 x10^3/uL (4.0-11.0) Red Blood Count 5.06 x10^6/uL (3.50-5.40) 5.06 x10^6/uL (3.50-5.40) Hemoglobin 13.3 g/dL (12.0-15.5) 13.3 g/dL (12.0-15.5) Hematocrit 39.3 % (36.0-47.0) 39.6 % (36.0-47.0) Mean Corpuscular Volume 78 fL (79-100) 78 fL (79-100) Mean Corpuscular Hemoglobin 26 pg (25-35) 26 pg (25-35) Mean Corpuscular Hemoglobin Concent 34 g/dL (31-37) 34 g/dL (31-37) Red Cell Distribution Width 15.2 % (11.5-14.5) 15.0 % (11.5-14.5) Platelet Count 241 x10^3/uL (140-400) 232 x10^3/uL (140-400) Neutrophils (%) (Auto) 61 % (31-73) 60 % (31-73) Lymphocytes (%) (Auto) 31 % (24-48) 30 % (24-48) Monocytes (%) (Auto) 7 % (0-9) 9 % (0-9) Eosinophils (%) (Auto) 1 % (0-3) 1 % (0-3) Basophils (%) (Auto) 1 % (0-3) 0 % (0-3) Neutrophils # (Auto) 4.2 x10^3/uL (1.8-7.7) 4.6 x10^3/uL (1.8-7.7) Lymphocytes # (Auto) 2.1 x10^3/uL (1.0-4.8) 2.3 x10^3/uL (1.0-4.8) Monocytes # (Auto) 0.5 x10^3/uL (0.0-1.1) 0.7 x10^3/uL (0.0-1.1) Eosinophils # (Auto) 0.1 x10^3/uL (0.0-0.7) 0.0 x10^3/uL (0.0-0.7) Basophils # (Auto) 0.0 x10^3/uL (0.0-0.2) 0.0 x10^3/uL (0.0-0.2) Sodium Level 138 mmol/L (136-145) 138 mmol/L (136-145) Potassium Level 3.3 mmol/L (3.5-5.1) 3.2 mmol/L (3.5-5.1) Chloride Level 103 mmol/L (98-107) 104 mmol/L (98-107) Carbon Dioxide Level 27 mmol/L (21-32) 26 mmol/L (21-32) Anion Gap 8 (6-14) 8 (6-14) Blood Urea Nitrogen 7 mg/dL (7-20) 10 mg/dL (7-20) Creatinine 0.7 mg/dL (0.6-1.0) 0.7 mg/dL (0.6-1.0) Estimated GFR (Cockcroft-Gault) 92.7 92.7 Glucose Level 92 mg/dL (70-99) 89 mg/dL (70-99) Calcium Level 8.8 mg/dL (8.5-10.1) 8.7 mg/dL (8.5-10.1) Ferritin 20 ng/mL (8-252) Troponin I High Sensitivity 6 ng/L (4-50) Thyroid Stimulating Hormone (TSH) 0.989 uIU/mL (0.358-3.74) Phosphorus Level 3.8 mg/dL (2.6-4.7) Magnesium Level 2.1 mg/dL (1.8-2.4) Laboratory Tests Test 02/04/22 03:50 White Blood Count 7.6 x10^3/uL (4.0-11.0) Red Blood Count 5.06 x10^6/uL (3.50-5.40) Hemoglobin 13.3 g/dL (12.0-15.5) Hematocrit 39.6 % (36.0-47.0) Mean Corpuscular Volume 78 fL (79-100) Mean Corpuscular Hemoglobin 26 pg (25-35) Mean Corpuscular Hemoglobin Concent 34 g/dL (31-37) Red Cell Distribution Width 15.0 % (11.5-14.5) Platelet Count 232 x10^3/uL (140-400) Neutrophils (%) (Auto) 60 % (31-73) Lymphocytes (%) (Auto) 30 % (24-48) Monocytes (%) (Auto) 9 % (0-9) Eosinophils (%) (Auto) 1 % (0-3) Basophils (%) (Auto) 0 % (0-3) Neutrophils # (Auto) 4.6 x10^3/uL (1.8-7.7) Lymphocytes # (Auto) 2.3 x10^3/uL (1.0-4.8) Monocytes # (Auto) 0.7 x10^3/uL (0.0-1.1) Eosinophils # (Auto) 0.0 x10^3/uL (0.0-0.7) Basophils # (Auto) 0.0 x10^3/uL (0.0-0.2) Sodium Level 138 mmol/L (136-145) Potassium Level 3.2 mmol/L (3.5-5.1) Chloride Level 104 mmol/L (98-107) Carbon Dioxide Level 26 mmol/L (21-32) Anion Gap 8 (6-14) Blood Urea Nitrogen 10 mg/dL (7-20) Creatinine 0.7 mg/dL (0.6-1.0) Estimated GFR (Cockcroft-Gault) 92.7 Glucose Level 89 mg/dL (70-99) Calcium Level 8.7 mg/dL (8.5-10.1) Phosphorus Level 3.8 mg/dL (2.6-4.7) Magnesium Level 2.1 mg/dL (1.8-2.4) Brief Hospital Course Ms. Dang is a 42 old female who presented with hypertensive urgency. She was treated with IV labetalol and clonidine in the ER without significant improvement. She was placed on Cardene drip and monitored overnight. She was transitioned to oral medications and stable for discharge. Recommended she establish primary care for continued management of her hypertension. Discharge Information Condition at Discharge: Improved Disposition/Orders: D/C to Home Justicifation of Admission Dx: Justifications for Admission: Justification of Admission Dx: Yes KASI BARLOW MD Feb 04, 2022 13:31
[2022-02-04] MEDS ORDERED: HYDR12.575 PO (13:35)
[2022-02-04] MEDS ORDERED: AMLO-187 PO (13:35)
--- NOTE | 2022-02-04 14:45 | NUR ---
SS following for discharge planning. SS reviewed pt chart and discussed with pt RN. Pt is from home and is currently on room air. Self pay. Discharge order on the chart for home with self care. Pt provided with resources for free clinics in [facility] for PCP and follow up appointments and Good RX card.
--- NOTE | 2022-02-04 15:00 | NUR ---
Discharge Note: TOMI MEEKS [address] [place] [address] Discharge instructions and discharge home medications reviewed with Patient and a copy given. All questions have been answered and understanding verbalized. The following instructions and handouts were given: discharge instructions, med list, HTN education, free clinic information, good RX card. [employer] associate phone for discharge. Discontinued lines and drains: Peripheral IV intact. Patient discharged to Home or Self Care with Family Member via [facility] at 1500.
== END 2022-02-04 15:00 | disposition home or self-care (01) | DRG 305 ==
LOC: ER 09:27 → ED HOLD 15:00 → 6 SOUTH 18:09
PROVIDERS: ADMIT Internal Medicine; ATTEND Internal Medicine
DX: I16.0 Hypertensive urgency (principal); D64.9 Anemia, unspecified; I10 Essential (primary) hypertension; E87.6 Hypokalemia; Z82.49 Family history of ischemic heart disease and other diseases of the circulatory system; R07.89 Other chest pain
CPT/HCPCS: 36415; 70450; 71045; 80048; 81001; 81025; 82728; 83735; 84100; 84443; 84484; 85025; 93005; 96365; 96366; 96375; 96376; J0780; J1885; J2405; J3490; J7050; 99285-25; G0378; J7030